=== PATIENT | female | born 1965 | race Caucasian/White ===

== ENCOUNTER 2017-05-02 14:27 | Day surgery (SDC) | payer OTHER ==
[~2017-05-02] VITALS: Ht 157.5 cm; Wt 83.9 kg
[~2017-05-02 14:27] MED LIST: ASPIRIN EC325 MG PO; AZITHROMYCIN250 MG PO; BENTYL10 MG PO; BENZONATATE200 MG PO; CIPROFLOXACN500 MG PO; DEPO-MEDROL80 MG/ML IM; DOXYCYC MONO100 M2 PO; FIORICET PO; FLEXERIL PO; FLONASE NASAL50 MCG; HYDROCHLOROT25 MG PO; HYDROXYZ HCL25 MG PO; INDOCIN50 MG/CAP PO; LISINOPRIL10 MG PO; LOSARTAN POT25 MG PO; MAGNESIUM 250 M1 TAB PO; METO50TA52 PO; METOPROLOL TART50 MG PO; MUCINEX600 MG PO; NAPROSYN500 MG PO; NAPROXEN500 MG PO; NORCO1 TA1 PO; ONDANSETRON4 MG PO; PERCOCET1 TA4 PO; PREDNISONE20 MG PO; PROAIR HFA IN; PROMETHAZINE25 MG PO; PROTONIX40 MG PO; ROBITUSSIN AC10 ML PO; SOLU-MEDROL125 MG IM; SOLU-MEDROL125 MG PO; TOBRAMYCIN0.3 % OU; TOPROL XL25 M1 PO; VITAMIN D50000 UN1 PO; ZITHROMAX500 MG PO; ZOFRAN4 MG/TAB PO
[2017-05-02] MEDS ORDERED: PERCOCET 10/31 COMBO PO (18:47)
[2017-05-02] MEDS ORDERED: MEDDOSEPAK PO (18:47)
[2017-05-02 19:03] VITALS: BP 155/81
== END 2017-05-02 19:20 | disposition home or self-care (01) | DRG 561 ==
LOC: ORM 14:27
PROVIDERS: ATTEND Orthopaedic Surgery
PROC: 0SNDXZZ Release Left Knee Joint, External Approach (ICD-10-PCS; principal; 2017-05-02)
PROC: 3E0U33Z Introduction of Anti-inflammatory into Joints, Percutaneous Approach (ICD-10-PCS; 2017-05-02)
PROC: 3E0U3BZ Introduction of Anesthetic Agent into Joints, Percutaneous Approach (ICD-10-PCS; 2017-05-02)
DX: T84.82XA Fibrosis due to internal orthopedic prosthetic devices, implants and grafts, initial encounter (principal); Y83.1 Surgical operation with implant of artificial internal device as the cause of abnormal reaction of the patient, or of later complication, without mention of misadventure at the time of the procedure

== ENCOUNTER 2018-02-11 11:04 | Day surgery (SDC) | payer OTHER ==
[~2018-02-11] VITALS: Ht 157.5 cm; Wt 90.7 kg
[~2018-02-11 11:04] MED LIST changes: +MEDDOSEPAK PO; +NEXIUM40 M1 PO; +PERCOCET 10/31 COMBO PO; +ZITHROMAX250 MG PO
[2018-02-11] MEDS ORDERED: ECOTRIN M/S500 MG PO (16:09)
[2018-02-11] MEDS ORDERED: CLINDAMYCIN HC150 MG PO (16:09)
[2018-02-11] MEDS ORDERED: PERCOCET 5/325M1 TAB PO (16:09)
[2018-02-11 16:51] VITALS: BP 122/62
== END 2018-02-11 17:21 | disposition home or self-care (01) | DRG 505 ==
LOC: ORM 11:04
PROVIDERS: ATTEND Podiatrist Foot & Ankle Surgery
PROC: 0SSM04Z Reposition Right Metatarsal-Phalangeal Joint with Internal Fixation Device, Open Approach (ICD-10-PCS; principal; 2018-02-11)
PROC: 0SSM04Z Reposition Right Metatarsal-Phalangeal Joint with Internal Fixation Device, Open Approach (ICD-10-PCS; 2018-02-11)
PROC: 0QBN0ZZ Excision of Right Metatarsal, Open Approach (ICD-10-PCS; 2018-02-11)
DX: M66.371 Spontaneous rupture of flexor tendons, right ankle and foot (principal); M24.374 Pathological dislocation of right foot, not elsewhere classified; M20.41 Other hammer toe(s) (acquired), right foot; M85.871 Other specified disorders of bone density and structure, right ankle and foot
CPT/HCPCS: C9290; J2270

== ENCOUNTER → 2019-01-04 | Outpatient (REF) | payer OTHER ==
[~2019-01-04] MED LIST changes: +CLINDAMYCIN HC150 MG PO; +ECOTRIN M/S500 MG PO; +HYDROCHLOROT12.5 MG PO; +PERCOCET 5/325M1 TAB PO; +TOBREX OPTH5 ML/BTL OU
== END | disposition home or self-care (01) | DRG 556 ==
LOC: DI 12:02
PROVIDERS: ATTEND Orthopaedic Surgery
DX: M25.561 Pain in right knee (principal)

== ENCOUNTER → 2019-01-18 | Outpatient (REF) ==
[2019-01-18 09:06] LABS: CHOLESTEROL HDL RATIO 2.6 (<4.4 (CALC))
== END | disposition home or self-care (01) | DRG 951 ==
LOC: LAB 07:56
PROVIDERS: ATTEND Family Medicine
DX: Z02.6 Encounter for examination for insurance purposes (principal)

== ENCOUNTER 2019-02-18 06:35 | Day surgery (SDC) | payer OTHER ==
[2019-02-18 09:12] VITALS: BP 106/58
== END 2019-02-18 08:45 | disposition home or self-care (01) | DRG 395 ==
LOC: ENDO 06:35 → ORM 11:30
PROVIDERS: ATTEND Surgery
PROC: 0DJD8ZZ Inspection of Lower Intestinal Tract, Via Natural or Artificial Opening Endoscopic (ICD-10-PCS; principal; 2019-02-18)
DX: K64.8 Other hemorrhoids (principal); I10 Essential (primary) hypertension

== ENCOUNTER 2021-10-05 15:59 | Emergency (ER) | payer OTHER ==
[~2021-10-05] VITALS: Ht 157.5 cm; Wt 100.6 kg
[~2021-10-05 15:59] MED LIST changes: +ZPAK PO
[2021-10-05] MEDS ORDERED: MOTRIN800 MG PO (17:40)
[2021-10-05 17:46] VITALS: BP 125/78
== END 2021-10-05 17:59 | disposition home or self-care (01) | DRG 563 ==
LOC: ED 15:59
DX: S83.91XA Sprain of unspecified site of right knee, initial encounter (principal); S80.01XA Contusion of right knee, initial encounter; S80.211A Abrasion, right knee, initial encounter; E11.9 Type 2 diabetes mellitus without complications; I10 Essential (primary) hypertension; W01.0XXA Fall on same level from slipping, tripping and stumbling without subsequent striking against object, initial encounter; Y92.009 Unspecified place in unspecified non-institutional (private) residence as the place of occurrence of the external cause
CPT/HCPCS: L1830

== ENCOUNTER 2022-06-06 06:38 | Day surgery (SDC) | payer OTHER ==
[~2022-06-06 06:38] MED LIST changes: +ACID CONTROL MA20 MG; +LOSARTAN POTASS1 TA3; +MOTRIN800 MG PO; +NADOLOL20 MG PO; +OZEMPIC2 MG/1.5 M; +PROTONIX40 M2 PO; +SPIRONOLACT50 MG PO
[2022-06-06] MEDS ORDERED: PROTONIX40 M2 PO (08:25)
[2022-06-06] MEDS ORDERED: CARAFATE PO (08:25)
[2022-06-06 09:13] VITALS: BP 114/80
[2022-06-12] MEDS ORDERED: PREVACID15 M1 PO (11:04)
== END 2022-06-06 08:58 | disposition home or self-care (01) | DRG 392 ==
LOC: ENDO 06:38 → ORM 08:00 → ENDO 08:00
PROVIDERS: ATTEND Surgery
PROC: 0DB48ZX Excision of Esophagogastric Junction, Via Natural or Artificial Opening Endoscopic, Diagnostic (ICD-10-PCS; principal; 2022-06-06)
PROC: 0DB78ZX Excision of Stomach, Pylorus, Via Natural or Artificial Opening Endoscopic, Diagnostic (ICD-10-PCS; 2022-06-06)
DX: K21.00 Gastro-esophageal reflux disease with esophagitis, without bleeding (principal); K44.9 Diaphragmatic hernia without obstruction or gangrene; K29.50 Unspecified chronic gastritis without bleeding; K31.9 Disease of stomach and duodenum, unspecified; K31.7 Polyp of stomach and duodenum; I10 Essential (primary) hypertension; E11.9 Type 2 diabetes mellitus without complications; Z79.899 Other long term (current) drug therapy; Z90.49 Acquired absence of other specified parts of digestive tract

== ENCOUNTER 2023-11-24 07:14 | Day surgery (SDC) | payer OTHER ==
[~2023-11-24] VITALS: Ht 157.5 cm; Wt 89.8 kg
[~2023-11-24 07:14] MED LIST changes: +CARAFATE PO; +MELOXICAM15 MG PO; +MELOXICAM7.5 MG PO; +OZEMPIC 8 MG/3M1 INJ IN; +PREVACID15 M1 PO; +RYBELSUS3 MG PO
[2023-11-24 09:27] VITALS: BP 103/71
== END 2023-11-24 10:28 | disposition home or self-care (01) | DRG 394 ==
LOC: ENDO 07:14 → ORM 07:30 → ENDO 10:28
PROVIDERS: ATTEND Internal Medicine Gastroenterology
PROC: 0DBK8ZX Excision of Ascending Colon, Via Natural or Artificial Opening Endoscopic, Diagnostic (ICD-10-PCS; principal; 2023-11-24)
PROC: 0DBL8ZX Excision of Transverse Colon, Via Natural or Artificial Opening Endoscopic, Diagnostic (ICD-10-PCS; 2023-11-24)
PROC: 0DBN8ZX Excision of Sigmoid Colon, Via Natural or Artificial Opening Endoscopic, Diagnostic (ICD-10-PCS; 2023-11-24)
PROC: 0DBP8ZX Excision of Rectum, Via Natural or Artificial Opening Endoscopic, Diagnostic (ICD-10-PCS; 2023-11-24)
PROC: 0DBM8ZX Excision of Descending Colon, Via Natural or Artificial Opening Endoscopic, Diagnostic (ICD-10-PCS; 2023-11-24)
PROC: 0DBH8ZX Excision of Cecum, Via Natural or Artificial Opening Endoscopic, Diagnostic (ICD-10-PCS; 2023-11-24)
DX: K64.8 Other hemorrhoids (principal); I48.92 Unspecified atrial flutter; K20.80 Other esophagitis without bleeding

== ENCOUNTER → 2024-12-15 | Day surgery (SDC) | payer OTHER ==
[~2024-12-15] VITALS: Ht 157.5 cm; Wt 81.6 kg
[~2024-12-15] MED LIST changes: +BUPIVACAINE HCL PF 0.5 % 50 MG/10 ML SDV ONE; +LIDOCAINE MPF 1% (10 MG/ML) 5 ML VIAL ONE; +SODIUM CHLORIDE 0.9% 10 ML SYR ONE
[2024-12-15 08:43] VITALS: BP 124/75
== END | disposition home or self-care (01) | DRG 556 ==
LOC: ORM 06:46
PROVIDERS: ATTEND Student in an Organized Health Care Education/Training Program
DX: M25.561 Pain in right knee (principal); M22.41 Chondromalacia patellae, right knee; M25.461 Effusion, right knee; M17.11 Unilateral primary osteoarthritis, right knee; G89.4 Chronic pain syndrome